=== PATIENT | female | born 1935 | race Hispanic/Latino ===

== ENCOUNTER → 2019-03-24 | Outpatient (CLI) | payer MEDICARE, OTHER ==
--- NOTE | 2019-03-24 10:19 | Diagnostic Imaging Report ---
Exam: Left Knee Series - 3 Views History: Knee pain Comparison: None Findings: No acute fracture or dislocation. Alignment is anatomic. No joint effusion. Minimal degenerative change. Impression: No acute osseous injury. Signed by: William Dominguez MD on 03/24/2019 10:15 AM
--- NOTE | 2019-03-24 10:40 | Diagnostic Imaging Report ---
EXAM: Left knee limited Non-Vascular Ultrasound INDICATION: Knee pain, possible Barger's cyst COMPARISON: Left knee radiograph of earlier the same day TECHNIQUE: Grayscale and color Doppler analysis of the left knee was performed. FINDINGS: Sonographic evaluation of the soft tissues of the left knee demonstrates no evidence of mass or cyst. No large joint effusion. IMPRESSION: No mass or Barger cyst. Signed by: William Dominguez MD on 03/24/2019 10:36 AM
== END ==
LOC: US 09:13
PROVIDERS: ATTEND Family Medicine
DX: M25.562 Pain in left knee (principal)
CPT/HCPCS: 76882

== ENCOUNTER → 2021-02-27 | Outpatient (CLI) | payer MEDICARE, OTHER | LOC: RAD 12:42 | PROVIDERS: ATTEND Family Medicine | DX: M79.604 Pain in right leg (principal) | CPT/HCPCS: 93971 ==

== ENCOUNTER → 2021-06-12 | Outpatient (CLI) | payer MEDICARE, OTHER | LOC: RAD 09:45 | PROVIDERS: ATTEND Family Medicine | DX: M79.605 Pain in left leg (principal); M79.604 Pain in right leg ==

== ENCOUNTER → 2021-06-13 | Outpatient (CLI) | payer MEDICARE, OTHER | LOC: RAD 09:30 | PROVIDERS: ATTEND Family Medicine | DX: M79.605 Pain in left leg (principal); M79.604 Pain in right leg | CPT/HCPCS: 93970 ==

== ENCOUNTER → 2021-07-12 | Outpatient (CLI) | payer MEDICARE, OTHER | LOC: MRI 13:13 | PROVIDERS: ATTEND Family Medicine | DX: M79.604 Pain in right leg (principal); S86.811A Strain of other muscle(s) and tendon(s) at lower leg level, right leg, initial encounter ==

== ENCOUNTER → 2022-04-03 | Outpatient (CLI) | payer MEDICARE, OTHER | LOC: DX 10:33 | PROVIDERS: ATTEND Family Medicine | DX: R05.3 Chronic cough (principal) | CPT/HCPCS: 0223U; 36415; 74246 ==